=== PATIENT | male | born 1995 | race Two or more races ===

== ENCOUNTER 2019-07-29 13:06 | Emergency (ER) | payer BC, SELFPAY ==
[~2019-07-29] VITALS: Ht 175.3 cm; Wt 75.6 kg
[2019-07-29 13:13] VITALS: BP 128/81
--- NOTE | 2019-07-29 13:57 | NUR ---
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
--- NOTE | 2019-07-29 14:22 | NUR ---
THIS IS A 23 YO M W/ C/O OF PENIS IRRITATION AFTER USING A NEW LUBRICANT DURING INTERCOURSE. DENIES PAIN W/ URINATION, DRAINAGE/SWELLING. REPORTS REDNESS. NADN. PT IS RESTING W/ CALL LIGHT IN REACH. DENIES FURTHER NEEDS AT THIS TIME.
--- NOTE | 2019-07-29 14:34 | NUR ---
Patient given discharge instructions and they have confirmed that they understand the instructions. Patient ambulatory with steady gait.
== END 2019-07-29 14:35 | disposition home or self-care (01) ==
LOC: ED 14:23
DX: N48.89 Other specified disorders of penis (principal); Z77.098 Contact with and (suspected) exposure to other hazardous, chiefly nonmedicinal, chemicals
CPT/HCPCS: 99283